=== PATIENT | female | born 2000 | race Caucasian/White ===

== ENCOUNTER → 2018-02-28 16:59 | Outpatient (CLI) | payer MEDICAID, SELFPAY ==
[2016-09-02 13:19] VITALS: BMI 27.8
[2018-02-28 21:16] LABS: Chlamydia Trachomatis by PCR Negative (Negative); Neisserai gonorrhoeae by PCR Negative (Negative); Probe Check PASS; Sample Adequacy Control PASS; Specimen Processing Control PASS
== END ==
PROVIDERS: Visit Provider Obstetrics & Gynecology
DX: Z32.01 Encounter for pregnancy test, result positive (principal); Z11.3 Encounter for screening for infections with a predominantly sexual mode of transmission
CPT/HCPCS: 87491; 87591

== ENCOUNTER → 2018-03-21 14:49 | Outpatient (CLI) | payer MEDICAID, SELFPAY ==
[2016-09-02 13:19] VITALS: BMI 27.8
[2018-03-21 15:53] LABS: Absolute Lymphocyte Count 1.24 X10^3/ul (0.83-4.51); Absolute Neutrophil Count 7.8 X10^3/uL (2.0-7.7); Basophil# 0.02 X10^3/uL; Basophil% 0.2 % (0-1); Eosinophil# 0.15 X10^3/uL; Eosinophils% 1.5 % (0-5); Hematocrit 37.8 % (37-47); Hemoglobin 13.3 g/dl (12.0-15.0); Lymphocyte # 1.24 X10^3/ul (4.0); Lymphocyte % 12.6 % (19-41); Mean Corp Hgb Conc 35.2 g/gl (32-36); Mean Corpuscular Hgb 30.2 pg (27.0-32.0); Mean Corpuscular Volume 85.7 fL (81-99); Mean Platelet Vol. 10.7 fl (6.2-12.0); Monocyte# 0.61 X10^3/uL; Monocyte% 6.2 % (0-10); Neutrophil # 7.84 X10^3/uL (2.7-7.7); Neutrophil % 79.4 % (47-70); Platelet Count 306 K/mm3 (150-450); RBC Distribution Width CV 12.9 % (11.6-14.6); RBC Distribution Width SD 39.6 fl (35.1-43.9); Red Blood Count 4.41 M/mm3 (4.2-5.4); White Blood Count 9.9 K/mm3 (4.4-11.0)
[2018-03-21 16:04] LABS: Thyroid Stim Hormone (TSH) 0.45 uIU/mL (0.358-3.74)
[2018-03-21 16:08] LABS: Amphetamine Urine VISTA NEGATIVE (<1000 ng/mL); Barbiturate Urine VISTA NEGATIVE (< 200 ng/mL); Benzodiazepine Urine VISTA NEGATIVE (< 200 ng/mL); Cocaine Urine VISTA NEGATIVE (< 300 ng/mL); Ecstacy Urine VISTA NEGATIVE (< 500 ng/mL); Methadone Urine VISTA NEGATIVE (< 300 ng/mL); PCP Urine VISTA NEGATIVE (< 25 ng/mL); THC Urine VISTA POSITIVE (< 50 ng/mL); Vista UDS pH Range 6
[2018-03-21 16:09] LABS: Color, Urine Yellow (Yellow); Glucose, Dipstick Normal (Normal); Ketone-Dipstick Negative (Negative); Leukocyte Esterase-Dipstick Negative /ul (Negative); Nitrite-Dipstick Negative (Negative); Occult Blood-Urine Negative /ul (Negative); Protein-Dipstick Negative (Negative); Specific Gravity, Urine 1.015 (1.002-1.030); Urine Bilirubin Dipstick Negative (Negative); Urine Clarity Clear (Clear); Urine Urobilinogen 1 mg/dl (Normal)
[2018-03-21 16:12] LABS: COTININE Drug Screen Positive (<200 ng/mL)
[2018-03-21 16:14] LABS: POSITIVE COUNT NO; POSITIVE DIFFERENTIAL NO; POSITIVE MORPHOLOGY NO
[2018-03-21 16:46] LABS: HIV - WCH Non-Reactive (Nonreactive); Rubella IgG 17.8 IU/mL; Vitamin D,25 Hydroxy 14.7 ng/mL (29.95-100.01)
[2018-03-23 11:52] LABS: HEPATITIS B SURFACE AG Negative (Negative); Hep C Antibodies 0.1 s/co ratio (0.0-0.9)
[2018-03-25 07:38] LABS: Prenatal RPR NONREACTIVE (NONREACTIVE)
== END ==
PROVIDERS: Visit Provider Obstetrics & Gynecology
DX: Z34.81 Encounter for supervision of other normal pregnancy, first trimester (principal)
CPT/HCPCS: 36415; 80307; 81002; 82306; 84443; 85025; 86703; 86762; 86803; 87340

== ENCOUNTER → 2018-07-13 16:30 | Outpatient (CLI) | payer MEDICAID, SELFPAY ==
[2016-09-02 13:19] VITALS: BMI 27.8
[2018-07-13 17:21] LABS: Glucose Challenge Gest 1H 50g 119 mg/dL (70-140)
[2018-07-13 17:39] LABS: Hematocrit 34.7 % (37-47); Hemoglobin 11.9 g/dl (12.0-15.0); Mean Corp Hgb Conc 34.3 g/gl (32-36); Mean Corpuscular Hgb 29.9 pg (27.0-32.0); Mean Corpuscular Volume 87.2 fL (81-99); Mean Platelet Vol. 11.3 fl (6.2-12.0); Platelet Count 232 K/mm3 (150-450); RBC Distribution Width SD 40.1 fl (35.1-43.9); Red Blood Count 3.98 M/mm3 (4.2-5.4)
[2018-07-13 17:45] LABS: Scan Indicated on CBC? Y/N NO
== END ==
PROVIDERS: Visit Provider Obstetrics & Gynecology
DX: Z34.83 Encounter for supervision of other normal pregnancy, third trimester (principal)
CPT/HCPCS: 36415; 82950; 85027

== ENCOUNTER → 2018-09-06 16:31 | Outpatient (CLI) | payer MEDICAID, SELFPAY ==
[2016-09-02 13:19] VITALS: BMI 27.8
== END ==
PROVIDERS: Visit Provider Obstetrics & Gynecology
DX: Z36.85 Encounter for antenatal screening for Streptococcus B (principal)
CPT/HCPCS: 87081

== ENCOUNTER → 2018-09-14 10:36 | Outpatient (CLI) | payer MEDICAID, SELFPAY ==
[2018-09-14 11:03] LABS: Mucous, Urine 0 SEEN /hpf (<or=2+); Red Blood Cells-Urine 0 SEEN /hpf (0-5)
[2018-09-14 13:44] LABS: Hemoglobin 11.1 g/dL (12.0-15.0); Mean Corp Hgb Conc 32.6 g/dL (32-36); Mean Corpuscular Hgb 27.8 pg (27.0-32.0); Mean Platelet Vol. 11.8 fl (6.2-12.0); Platelet Count 218 K/mm3 (150-450); RBC Distribution Width CV 13.5 % (11.6-14.6); RBC Distribution Width SD 41.6 fl (35.1-43.9); White Blood Count 10.9 K/mm3 (4.4-11.0)
[2018-09-14 13:54] LABS: Uric Acid 3.5 mg/dL (2.6-6.0)
[2018-09-14 13:56] LABS: Color, Urine Yellow (Yellow); Glucose, Dipstick 250 mg/dl (Normal); Ketone-Dipstick 15 mg/dl (Negative); Leukocyte Esterase-Dipstick 500 /ul (Negative); Nitrite-Dipstick Negative (Negative); Occult Blood-Urine 25 /ul (Negative); Protein-Dipstick 30 mg/dl (Negative); Urine Bilirubin Dipstick Negative (Negative); Urine Clarity Turbid (Clear); Urine Urobilinogen 1 mg/dl (Normal)
[2018-09-14 14:02] LABS: Amorphous Sediment 4+; Bacteria 2+ /hpf (None Seen); Squamous Epithelial Cells - UA 0-5 SEEN /hpf (5-10); White Blood Cells 10-25 SEEN /hpf (0-5)
[2018-09-14 14:16] LABS: Protein, Urine (Random) 58.9 mg/dL (<11.9)
[2018-09-15 17:39] LABS: ALB/GLOB Ratio 0.8 RATIO (0.9-2.4); AST(SGOT) 12 U/L (15-37); Alanine Aminotransfer ALT/SGPT 15 U/L (13-56); Albumin, Serum 2.7 g/dL (3.2-5.0); Alkaline Phosphatase 259 U/L (45-117); Anion Gap 10 (5-15); BUN 7 mg/dL (7-18); BUN/Creat Ratio 13.5 RATIO (10-20); Calcium,Total 8.3 mg/dL (8.5-10.1); Chloride 109 mmol/L (98-107); Creatinine, Serum 0.52 mg/dL (0.55-1.02); EST Glomerular Filtration Rate 160 mL/min (>60); Est Glom Filt Rate - Afr Amer 194 mL/min (>60); Globulin 3.5 g/dL (2.2-4.2); Glucose 64 mg/dL (74-106); Potassium 3.8 mmol/L (3.5-5.1); Protein, Total 6.2 g/dL (6.4-8.2); Sodium Level 138 mmol/L (136-145)
== END ==
PROVIDERS: Visit Provider Obstetrics & Gynecology
DX: O13.9 Gestational [pregnancy-induced] hypertension without significant proteinuria, unspecified trimester (principal); O23.40 Unspecified infection of urinary tract in pregnancy, unspecified trimester; Z3A.00 Weeks of gestation of pregnancy not specified
CPT/HCPCS: 36415; 80053; 81001; 82570; 84156; 84550; 85027; 87086; 87088

== ENCOUNTER 2018-09-29 09:00 | Inpatient (IN) | payer MEDICAID, SELFPAY ==
[2018-09-29 04:00] VITALS: BMI 34.2
[2018-09-29] MEDS: Acetaminophen 500 MG Tablet 1000 MG PO ×2 (04:12→16:29)
--- NOTE | 2018-09-29 07:06 | OB.TRI.HP_ITS ---
History of Present Illness Date of Service: 09/29/18 Reason For Visit: RULE OUT LABOR Date of Service: 09/29/18 Final ARON: 10/03/18 Final ARON Source: US <20 weeks Gestational age: 39 Weeks and 3 Days History of Present Illness: 17 yo female presents with [facility] for labor check. States very uncomfortable. scheduled for induction of labor on 09/30/18 for persistent perception of decreased movement. Allergies No Known Allergies Allergy (Verified 09/29/18 04:43) Physical Exam Cervix Dilation (cm): 1 Effacement (%): 50 NST - FHR Rate Baby A Baseline: 120-130s avg with accels. no decels. Variability:: Moderate Accelerations:: 15 x 15 Decelerations:: None NST Reactive:: Yes, Appropriate for gestational age FHR Category:: Category I Uterine Activity:: Irregular UCs Impression/Plan 39 3/7 wk False labor Reactive NST No change in cervix with observation Home. Return as planned for elective induction of labor.
[2018-09-29] MEDS: Lactated Ringers 1,000 ML 50 ML IV ×2 (09:30→10:30)
[2018-09-29 09:56] LABS: Basophil# 0.04 X10^3/uL; Basophil% 0.2 % (0-1); Eosinophil# 0.01 X10^3/uL; Hematocrit 37.4 % (37-47); Hemoglobin 12.3 g/dL (12.0-15.0); Lymphocyte % 4.6 % (19-41); Mean Corp Hgb Conc 32.9 g/dL (32-36); Mean Corpuscular Hgb 27.5 pg (27.0-32.0); Mean Corpuscular Volume 83.5 fL (81-99); Mean Platelet Vol. 11.8 fl (6.2-12.0); Monocyte# 0.62 X10^3/uL; Monocyte% 2.8 % (0-10); NRBC Flagged by Analyzer 0 % (0-5); Neutrophil # 19.98 X10^3/uL (2.7-7.7); Neutrophil % 91.7 % (47-70); Platelet Count 214 K/mm3 (150-450); RBC Distribution Width CV 14.2 % (11.6-14.6); RBC Distribution Width SD 42.8 fl (35.1-43.9); Red Blood Count 4.48 M/mm3 (4.2-5.4); White Blood Count 21.8 K/mm3 (4.4-11.0)
--- NOTE | 2018-09-29 10:06 | HP.PCM_ITS ---
History and Physical Date of Admission: 09/29/18 OB HISTORY AND PHYSICAL EXAMINATION History of this : 17 yo female Ab1 with EDC 10/03/2018 by 9 weeks 0 days Ultrasound, presents to Labor and Delivery with ongoing UCs. In last night with CC of UCs, but no change in cervix. 39 3/7 wk planned induction for tomorrow. care remarkable for - 1.) SMOKER, 2.) hx drug use -cocaine, thc, 3.) Trichomonas . treated Pertinent Past Medical History: As above. Allergies: No Known Drug Allergies Medications: During - Celexa 20 mg tablet; azithromycin 500 mg tablet; Diflucan 150 mg tablet; 28 mg-800 mcg tablet; 28 mg-800 mcg tablet; Flagyl 500 mg tablet; terconazole 0.4 % vaginal cream; nicotine 7 mg/24 hr daily tr ansdermal patch; Benadryl Allergy 25 mg tablet; Zantac 150 mg tablet; Keflex 500 mg capsule Review of Systems: Contractions. PHYSICAL EXAMINATION General Appearance: 17 yo female Sitting up for epidural Vital Signs: AF, VSS Heart: RRR without rubs or gallops Lungs: CTA x 2 Breasts: deferred Abdomen: gravid Cervix: 5 cm at evaluation Presentation: cephalic Station: Size: AGA Heart: 120-130s avg variability. Accels. rare, irregular UCs (poor pickup?) Impression /Plan: Intrauterine . 37 3/7 wk EGA . Labor. Epidural placement per pt request. Consider pitocin augmentation Watch progress, descent.
[2018-09-29] MEDS: fentaNYL-bupivacaine (epidural) 100 ML BAG EPIDURAL (10:52)
[2018-09-29 11:22] LABS: Amphetamine Urine VISTA NEGATIVE (<1000 ng/mL); Barbiturate Urine VISTA NEGATIVE (< 200 ng/mL); Benzodiazepine Urine VISTA NEGATIVE (< 200 ng/mL); Cocaine Urine VISTA NEGATIVE (< 300 ng/mL); Ecstacy Urine VISTA NEGATIVE (< 500 ng/mL); Methadone Urine VISTA NEGATIVE (< 300 ng/mL); PCP Urine VISTA NEGATIVE (< 25 ng/mL); THC Urine VISTA NEGATIVE (< 50 ng/mL); Vista UDS pH Range 6
--- NOTE | 2018-09-29 12:30 | PCM.PN.BLA ---
Progress Note LABOR PROGRESS NOTE Comfortable w/ epidural. AVSS EFM 120-130s avg variability Accels UCs q 2-5 mins BBOW: AROM Clear fluid CX: 7/100/0 A/P: 37 3/7 wk labor. Now AROM. may consider pitocin prn. Progress from 5 cm to 7 cm/0 station with IBOW, now AROM. Reassuring EFM Continue labor. Anticipate
[2018-09-29] MEDS: Ondansetron 4 MG/2 ML Vial IV (13:00)
[2018-09-29] MEDS: Oxytocin 30 units/NS 500 ml 30 UNITS/500 ML IV.SOLN IV (13:19)
[2018-09-29] MEDS: Oxytocin 30 units/NS 500 ml 30 UNITS/500 ML IV.SOLN 334 UNITS IV (14:52)
[2018-09-29] MEDS: Oxytocin 30 units/NS 500 ml 30 UNITS/500 ML IV.SOLN 167 UNITS IV (15:22)
[2018-09-29] MEDS: 0.9% Saline Lock 10 ML Syringe IV ×2 (16:29→19:10)
--- NOTE | 2018-09-29 18:00 | PCM.OPRPT ---
Vaginal Delivery Maternal Presentation: Active Labor Method of Induction: - - pitocin and amniotomy for augmentation Amniotic Membrane Rupture Type: Artificial Rupture of Membrane time: 1226h 09/29/18 Amniotic Fluid Description: Clear Final ARON: 10/03/18 Final ARON Source: US <20 weeks Gestational age: 39 weeks 3 days Date of Procedure: 09/29/18 Pre-Operative Diagnosis: 39 weeks gestation, labor Post-Operative Diagnosis: 39 weeks gestation, labor Surgery/ Procedure Performed: Spontaneous Vaginal Delivery Anesthesiologist: Lowell Saldivar Type of Anesthesia: Epidural Description of Procedure: Patient was FD and pushed to deliver a vigorous male . Delivery was attended by nurse Carlos Blackwood. I arrived immediately following delivery. The infant was on the maternal abdomen and vigorous. The cord was doubly clamped and cut. The placenta delivered spontaneously and appeared intact on inspection. No lacerations present and perineum intact. Sponge counts correct. Presentation: Vertex Placental Delivery Description: Spontaneous Placenta Disposition: [facility] Cord Vessel Description: 3 Vessels Nuchal Cord Compression: Without compression Cord Entanglement: Around neck x 1, loose Drain: Ramírez to straight drain Estimated Blood Loss: 200 ml Infant A gender: Male (1 minute): 9 (5 minute): 9 Episiotomy Description: None Laceration: None Medications given after delivery: IV Pitocin Complications: None
--- NOTE | 2018-09-29 19:39 | NURSING ---
Pt. up to bathroom, unable to void on toilet. To shower to attempt to void, unable.
[2018-09-29 20:00] VITALS: BP 117/70; PULSE 108; RESP 18; TEMP 35.8
[2018-09-29] MEDS: Ibuprofen 400 MG Tablet 800 MG PO (20:04)
[2018-09-29 23:20] VITALS: BP 104/63; PULSE 84; RESP 16; TEMP 35.9
[2018-09-30 03:58] VITALS: BP 101/54; PULSE 87; RESP 18; TEMP 36.1
[2018-09-30] MEDS: Ibuprofen 400 MG Tablet 800 MG PO ×2 (05:31→17:43)
[2018-09-30 08:33] VITALS: BP 111/68; PULSE 84; RESP 16; TEMP 36.4
--- NOTE | 2018-09-30 09:06 | PN.OBGYN_ITS ---
Subjective: Has mild cramping. Attempted to pump, but ultimately decided to bottle feed. Denies heavy lochia. Voided already. Feels well. Objective: AVSS - Physical Exam General: Alert, Oriented x3, Cooperative, No apparent distress HEENT: Atraumatic, Normocephalic Lungs: Clear to auscultation, Normal air movement Cardiovascular: Regular rate, Regular Rhythm, Normal S1, Normal S2 Abdomen: Soft, Non Tender, Non-Distended, - - Fundus firm and nontender, lochia moderate Extremities: No edema, No Calf Tenderness Neurological: Neuro grossly intact Psych/Mental Status: Normal Affect, Appropriate, Alert and oriented to time, place, person, mood and affect Vital Signs Temp Pulse Resp BP 97.6 F L 84 16 111/68 09/30/18 08:33 09/30/18 08:33 09/30/18 08:33 09/30/18 08:33 Oxygen Delivery Method Room Air Weight: 108.4 kg Body Mass Index (BMI) 34.2 Intake and Output for Last 24 Hours 09/28/18 09/29/18 09/30/18 23:59 23:59 23:59 Output Total 800 / 800 Balance -800 / -800 Laboratory Tests Past 24 Hrs 09/29/18 09/29/18 09/29/18 09:30 09:30 10:30 WBC 21.8 H RBC 4.48 Hgb 12.3 Hct 37.4 MCV 83.5 MCH 27.5 MCHC 32.9 RDW Std Deviation 42.8 RDW Coeff of Prudencio 14.2 Plt Count 214 MPV 11.8 Immature Gran % (Auto) 0.700 Neut % (Auto) 91.7 H Lymph % (Auto) 4.6 L [place]idan % (Auto) 2.8 Eos % (Auto) 0.0 Baso % (Auto) 0.2 Absolute Neuts (auto) 20.0 H Absolute Lymphs (auto) 1.00 Nucleated RBC % 0 Urine Opiates Screen NEGATIVE Urine Methadone Screen NEGATIVE Ur Barbiturates Screen NEGATIVE Ur Phencyclidine Scrn NEGATIVE Ur Amphetamines Screen NEGATIVE U Methamphetamin-MDMA NEGATIVE U Benzodiazepines Scrn NEGATIVE Urine Cocaine Screen NEGATIVE U Cannabinoids Screen NEGATIVE Ur Drug Screen Comment Blood Type A POSITIVE Antibody Screen NEGATIVE Medical Necessity - Tobacco Use Smoking Status: Former smoker Assessment/Plan 17yo PPD#1 s/p doing well. -Rh positive -Bottlefeeding -Routine care -May d/c this afternoon if patient desires.
[2018-09-30 12:16] VITALS: BP 111/63; PULSE 83; RESP 16; TEMP 36.6
[2018-09-30] MEDS: Senna/Docusate Sodium 1 Tablet PO (12:26)
[2018-09-30] MEDS: Prenatal Vits Tablet 1 TABLET PO (12:26)
[2018-09-30 16:19] VITALS: BP 114/65; PULSE 82; RESP 16; TEMP 36.4
[2018-09-30 20:33] VITALS: BP 123/75; PULSE 80; RESP 18; TEMP 35.5
[2018-09-30] MEDS: Acetaminophen 500 MG Tablet 1000 MG PO (20:40)
--- NOTE | 2018-09-30 22:36 | NURSING ---
Taking over pt care at this time.
[2018-10-01 02:00] VITALS: BP 107/52; PULSE 82; RESP 18; TEMP 36; O2SAT 96
--- NOTE | 2018-10-01 05:04 | DCINST_ITS ---
Discharge Diet: No Restrictions Discharge Activity: Return to Normal Activity, May Shower, May Take a Tub Bath May resume sexual activity in: 4-6 weeks Lifting Restrictions: 10-20 lb Call your doctor if your incision/area has: Continuous Slow Oozing, Sudden Incr eased Bleeding, Increased Pain/ Swelling, Increased Redness Call your doctor if you observe: Fever of 101 or Higher, Inability to urinate, Inability to have a bowel movement, Using more than one pad per hour, Shortness of breath, Chest pain, Calf discomfort, Uncontrolled pain Cleanse incision/area with: Soap & Water Additional Instructions: If you experience any of the following, contact your healthcare provider. * Bleeding that soaks a pad every hour for 2 hours * Fever 100.4 or higher * Unrelieved incision or abdominal pain * Swelling, redness, discharge or bleeding from your incision or episiotomy site * Your incision begins to separate * Problems urinating (including inability to urinate or burning while urinating). * Visual changes * Severe headache * Flu-like symptoms * Pain or redness in one of both of your breasts * Pain, warmth, tenderness or swelling in your legs, especially the calf area * Frequent nausea and vomiting * Symptoms of depression or anxiety If you experience any of the following, call 911 or go to the nearest Emergency Room. * Chest pain * Problems breathing * Seizure activity * Partial or complete paralysis of a body part, slurred speech, weakness or drooping of the face, or a sudden inability to walk or hold your balance Allergies/Adverse Reactions: Allergies No Known Allergies Allergy (Verified 09/29/18 04:43) Medications to take at Discharge Vits [Prenatabs FA ] 1 tab PO DAILY 09/29/18 Ibuprofen [Motrin] 800 mg PO Q8H PRN PRN 30 Days #30 tab 10/01/18 Senna/Docusate Sodium [Senokot-S] 1 - 2 tab PO DAILY PRN PRN #60 tab 10/01/18 The following prescriptions were given: Ibuprofen [Motrin] 800 mg PO Q8H PRN PRN 30 Days #30 tab PRN Reason: Pain Transmission Status: Pending to [id number] Senna/Docusate Sodium [Senokot-S] 1 - 2 tab PO DAILY PRN PRN #60 tab PRN Reason: Constipation Transmission Status: Pending to [id number] Please Follow Up With: Drea Celaya MD When: 6 weeks Primary Care Physician: Delbert Alcaraz MD [Primary Care Provider] - Test Results: Test results from this visit will be discussed in further detail at your follow- up appointment, if applicable.
--- NOTE | 2018-10-01 05:31 | PCM.PN.OB ---
Subjective: Reports lower extremity swelling on R>L. Hx prior R. ankle surgery. Denies pain, feels well. No heavy lochia. Objective: AVSS - Physical Exam General: Alert, Oriented x3, Cooperative, No apparent distress HEENT: Atraumatic, Normocephalic Lungs: Normal air movement Cardiovascular: Regular rate, Regular Rhythm, Normal S1, Normal S2 Abdomen: Soft, Non Tender, Non-Distended, - - fundus firm and nontender Extremities: No Calf Tenderness, - - mild b/l nonpitting LE edema - symmetric in appearance, negative Keyshawn's bilaterally Neurological: Neuro grossly intact Psych/Mental Status: Normal Affect, Appropriate, Alert and oriented to time, place, person, mood and affect Vital Signs Temp Pulse Resp BP Pulse Ox 96.8 F L 82 18 107/52 L 96 10/01/18 02:00 10/01/18 02:00 10/01/18 02:00 10/01/18 02:00 10/01/18 02:00 Oxygen Delivery Method Room Air Weight: 108.4 kg Body Mass Index (BMI) 34.2 Intake and Output for Last 24 Hours 09/29/18 09/30/18 10/01/18 23:59 23:59 23:59 Output Total 800 / 800 Balance -800 / -800 Medical Necessity - Tobacco Use Smoking Status: Former smoker Assessment/Plan 17yo PPD#2 s/p doing well. -Rh positive -Bottlefeeding -Routine care -Si/sx DVT reviewed -Will d/c home today
[2018-10-01 08:05] VITALS: BP 108/62; PULSE 77; RESP 14; TEMP 36.1
[2018-10-01] MEDS: Ibuprofen 400 MG Tablet 800 MG PO (08:16)
[2018-10-01] MEDS: Prenatal Vits Tablet 1 TABLET PO (10:18)
[2018-10-01 13:55] VITALS: BP 134/81; PULSE 83; RESP 18; TEMP 36.8
--- NOTE | 2018-10-06 16:52 | NURSING ---
follow up call done. mother formula feeding and that is going well. denies questions or needs and was satisfied with her care
== END 2018-10-01 16:10 | disposition home or self-care (01) | DRG 560 ==
LOC: WPOUT 09:36
PROVIDERS: Obstetrics & Gynecology; Admitting Provider Obstetrics & Gynecology; Family Provider Family Medicine; PCP Family Medicine; Referring Provider Obstetrics & Gynecology; Visit Provider Obstetrics & Gynecology
DX: O69.81X0 Labor and delivery complicated by cord around neck, without compression, not applicable or unspecified (principal); O99.344 Other mental disorders complicating childbirth; F32.9 Major depressive disorder, single episode, unspecified; F41.9 Anxiety disorder, unspecified; O98.32 Other infections with a predominantly sexual mode of transmission complicating childbirth; A59.9 Trichomoniasis, unspecified; O12.05 Gestational edema, complicating the puerperium; Z3A.39 39 weeks gestation of pregnancy; Z37.0 Single live birth; Z86.59 Personal history of other mental and behavioral disorders; Z87.891 Personal history of nicotine dependence
CPT/HCPCS: 59025; 59050; 80307; 85025; 86850; 86900; 99218; J7120; A4216; G0378; J2405

== ENCOUNTER → 2018-11-07 13:27 | Outpatient (CLI) | payer MEDICAID, SELFPAY ==
[2018-11-07 16:34] LABS: Chlamydia Trachomatis by PCR Negative (Negative); Neisserai gonorrhoeae by PCR Negative (Negative); Probe Check PASS; Sample Adequacy Control PASS; Specimen Processing Control PASS
== END ==
PROVIDERS: Visit Provider Obstetrics & Gynecology
DX: Z11.3 Encounter for screening for infections with a predominantly sexual mode of transmission (principal)
CPT/HCPCS: 87491; 87591